=== PATIENT | male | born 1985 | race African-American/Black ===

== ENCOUNTER 2017-05-07 11:24 | Emergency (ER) | payer MEDICAID ==
[~2017-05-07] VITALS: Ht 175.3 cm; Wt 165.0 kg
[~2017-05-07 11:24] MED LIST: FURO-152 PO; HYDR25TA PO
[2017-05-07 11:41] VITALS: BP 147/92
[2017-05-07 12:15] LABS: CLARITY URINE CLOUDY (CLEAR); COLOR URINE YELLOW (YELLOW); KETONES URINE NEGATIVE (NEGATIVE); LEUKOCYTE ESTERASE URINE 3+ (NEGATIVE); NITRITE URINE NEGATIVE (NEGATIVE); OCCULT BLOOD URINE NEGATIVE (NEGATIVE); PH URINE >=9.0 (4.5-8.0); PROTEIN URINE 1+ (NEGATIVE); SPECIFIC GRAVITY URINE 1.023 (1.005-1.030)
[2017-05-07] MEDS ORDERED: CEFTRIAXONE SODIUM 250 MG/VIAL IM ONE (13:00)
[2017-05-07] MEDS ORDERED: AZITHROMYCIN 500 MG TABLET PO ONE (13:00)
== END 2017-05-07 14:04 | disposition home or self-care (01) ==
LOC: ER 13:58
DX: N30.90 Cystitis, unspecified without hematuria (principal); I10 Essential (primary) hypertension; Z87.891 Personal history of nicotine dependence
CPT/HCPCS: 81001; 96372; 99283; J0696; Z7610

== ENCOUNTER 2017-10-05 15:00 | Emergency (ER) | payer MEDICAID ==
[~2017-10-05] VITALS: Ht 175.3 cm; Wt 165.0 kg
[2017-10-05 19:44] VITALS: BP 147/81
== END 2017-10-05 19:45 | disposition home or self-care (01) ==
LOC: ER 15:00
DX: M25.531 Pain in right wrist (principal); M85.88 Other specified disorders of bone density and structure, other site; I10 Essential (primary) hypertension; Z90.49 Acquired absence of other specified parts of digestive tract; X58.XXXA Exposure to other specified factors, initial encounter; Y93.89 Activity, other specified; Y92.89 Other specified places as the place of occurrence of the external cause
CPT/HCPCS: 29125; 73110; 99284